=== PATIENT | female | born 1980 | race Caucasian/White ===

== ENCOUNTER 2019-04-01 18:16 | Emergency (ER) | payer SELFPAY ==
[~2019-04-01] VITALS: Ht 162.6 cm; Wt 111.6 kg
[2019-04-01 18:23] VITALS: BP 145/89
--- NOTE | 2019-04-01 18:25 | NUR ---
PT PLACED IN CHAIR B.
--- NOTE | 2019-04-01 18:36 | NUR ---
PT BIB MOTHER C/O SORE THROAT X4 DAYS WITH RIGHT EAR PAIN.
[2019-04-01] MEDS ORDERED: DEXAMETHASONE 10 MG/ML VIAL IM ONE (18:45)
[2019-04-01] MEDS ORDERED: PENICILLIN G BENZATHINE L-A 1.2 MU/2 ML SYR IM ONE (18:45)
--- NOTE | 2019-04-01 19:21 | NUR ---
Patient discharged with v/s stable. Written and verbal after care instructions given and explained. Patient alert, oriented and verbalized understanding of instructions. Ambulatory with steady gait. All questions addressed prior to discharge. ID band removed. Patient advised to follow up with PMD. Rx of AUGMENTIN, IBUPROFEN given. Patient educated on indication of medication including possible reaction and side effects. Opportunity to ask questions provided and answered.
== END 2019-04-01 19:21 | disposition home or self-care (01) ==
LOC: MED 18:16
DX: J02.9 Acute pharyngitis, unspecified (principal); H66.91 Otitis media, unspecified, right ear; F17.210 Nicotine dependence, cigarettes, uncomplicated
CPT/HCPCS: 99283